=== PATIENT | female | born 1960 | race American Indian/Alaskan Native ===

== ENCOUNTER 2018-02-14 12:31 | Emergency (ER) | payer OTHER ==
[2018-02-14 12:41] VITALS: PULSE 76; RESP 18; TEMP 98.7; O2SAT 99
--- NOTE | 2018-02-14 13:16 | C.PDOC ---
History Of Present Illness 57 year old female with PMHx of chronic pain management presents to the ED requesting detox from heroin and cocaine. Patient states her dosage of Methadone was decreased from 75mg to 30mg 5 days ago because "beer" was found in her urine at the clinic. Patient reports snorting cocaine and taking heroin on Friday. Her last dosage of Methadone was 5 days ago and she has not had any pain medications since then. Patient also complains of generalized body aches and chest congestion. She denies any SI/HI, SOB, headache. Time Seen by Provider: 02/14/18 12:55 Chief Complaint (Nursing): Substance Abuse History Per: Patient History/Exam Limitations: no limitations Onset/Duration Of Symptoms: Days Current Symptoms Are (Timing): Still Present Suicide/Self Injury Attempted (Context): None Modifying Factor(s): Cocaine, Other (Heroin) Associated Symptoms: denies: Suicidal Thoughts, Suicidal Plan Past Medical History Reviewed: Historical Data, Nursing Documentation, Vital Signs Vital Signs: Last Vital Signs Temp 98.7 F 02/14/18 12:38 Pulse 76 02/14/18 12:38 Resp 18 02/14/18 12:38 BP 119/68 02/14/18 13:26 Pulse Ox 99 02/14/18 14:42 - Medical History PMH: HTN, Hypercholesterolemia Surgical History: Cholecystectomy Family History: States: No Known Family Hx - Social History Hx Alcohol Use: Yes Hx Substance Use: Yes (COCAINE, METHADONE) Review Of Systems Constitutional: Positive for: Other (Generalized myalgias) Respiratory: Positive for: Cough, Other (Chest congestion ). Negative for: Shortness of Breath Psych: Negative for: Suicidal ideation Physical Exam - Physical Exam Appears: Non-toxic, No Acute Distress, Other Skin: Normal Color, Warm, Dry Head: Atraumatic, Normacephalic Eye(s): bilateral: Normal Inspection Nose: Normal Oral Mucosa: Moist Neck: Supple Cardiovascular: Rhythm Regular, No Murmur Respiratory: Rhonchi (Worse on the left ), Other (Wet transmitted breath sounds) Gastrointestinal/Abdominal: Soft, No Tenderness, No Guarding, No Rebound Neurological/Psych: Oriented x3, Normal Speech Disoriented To: Person ED Course And Treatment - Laboratory Results Result Diagrams: 02/14/18 13:33 02/14/18 13:33 Lab Interpretation: No Acute Changes O2 Sat by Pulse Oximetry: 99 (RA) Pulse Ox Interpretation: Normal - Radiology CXR: Interpreted by Me CXR Interpretation: Yes: No Acute Disease Reevaluation Time: 14:45 Reassessment Condition: Unchanged (Case discussed with crisis. No detox beds available at this time.) Medical Decision Making Medical Decision Making: Plan - Labs - UA - CXR Disposition Counseled Patient/Family Regarding: Studies Performed, Diagnosis, Need For Followup - Disposition Referrals: [facility] [Outside] Disposition: HOME/ ROUTINE Disposition Time: 14:48 Condition: STABLE Instructions: Opioid Use Disorder Forms: Deanslist (Korean) - Clinical Impression Clinical Impression: Opiate abuse, continuous - Scribe Statement The provider has reviewed the documentation as recorded by the Scribe Shannan Killian All medical record entries made by the Scribe were at my direction and personally dictated by me. I have reviewed the chart and agree that the record accurately reflects my personal performance of the history, physical exam, medical decision making, and the department course for this patient. I have also personally directed, reviewed, and agree with the discharge instructions and disposition.
[2018-02-14 13:27] VITALS: BP 119/68
[2018-02-14 13:36] LABS: BASO # 0.1 K/uL (0.0-0.2); BASO % 0.8 % (0.0-2.0); EOS # 0.1 K/uL (0.0-0.7); EOS % 1.4 % (0.0-4.0); HEMOGLOBIN 13.7 g/dL (11.0-16.0); LYMPH # 2.8 K/uL (1.0-4.3); LYMPH % 39.9 % (20.0-40.0); MEAN CELL VOLUME 80.8 fL (81.0-99.0); MEAN CORPUSCULAR HEMOGLOBIN 27.3 pg (27.0-31.0); MEAN CORPUSCULAR HGB CONC 33.8 g/dL (33.0-37.0); MEAN PLATELET VOLUME 8.3 fL (7.2-11.7); MONO # 0.6 K/uL (0.0-0.8); NEUT # 3.5 K/uL (1.8-7.0); NEUT % 49.9 % (50.0-75.0); NRBC % 0.1 % (0.0-2.0); RBC 5.04 Mil/uL (3.80-5.20); WHITE BLOOD COUNT 7.1 K/uL (4.8-10.8)
[2018-02-14 13:49] LABS: ALB/GLOB RATIO 1.3 (1.0-2.1); CALCIUM 9.6 mg/dl (8.6-10.4); GFR AFRICAN-AMERICAN > 60; GFR NON-AFRICAN AMERICAN > 60
[2018-02-14 13:57] LABS: ALT/SGPT 26 U/L (9-52); AST/SGOT 22 U/L (14-36); BLOOD UREA NITROGEN 11 mg/dL (7-17)
[2018-02-14 14:08] LABS: SQUAMOUS EPITHIAL 2 /hpf (0-5); URINE BILIRUBIN NEGATIVE (NEGATIVE); URINE BLOOD NEGATIVE (NEGATIVE); URINE CLARITY Clear (Clear); URINE COLOR Yellow (YELLOW); URINE GLUCOSE (UA) NORMAL (Normal); URINE LEUKOCYTE ESTERASE TRACE Leu/uL (Negative); URINE PROTEIN NEGATIVE (NEGATIVE)
[2018-02-14 14:20] LABS: BARBITURATES, UR NEGATIVE (NEGATIVE); BENZODIAZEPINES, UR NEGATIVE (NEGATIVE); OPIATES, UR NEGATIVE (NEGATIVE); PHENCYCLIDINE, UR NEGATIVE (NEGATIVE)
--- NOTE | 2018-02-14 18:19 | RAD ---
Date of service: 02/14/2018 HISTORY: chest congestion COMPARISON: Frontal chest radiograph 03/19/2012. TECHNIQUE: Chest PA and lateral FINDINGS: LUNGS: No active pulmonary disease. PLEURA: No significant pleural effusion identified. No pneumothorax apparent. CARDIOVASCULAR: Borderline cardiomegaly. No pulmonary vascular derangement appreciated. OSSEOUS STRUCTURES: No significant abnormalities. VISUALIZED UPPER ABDOMEN: Surgical clips are noted in the right upper quadrant abdomen. OTHER FINDINGS: None. IMPRESSION: No interval acute cardiopulmonary disease appreciated.
== END 2018-02-14 15:06 | disposition home or self-care (01) ==
LOC: C.ER 12:31
DX: F11.10 Opioid abuse, uncomplicated (principal)
CPT/HCPCS: 71046; 80053; 81001; 85025; 99283; G0480

== ENCOUNTER 2018-02-20 14:06 | Inpatient (IN) | payer MEDICARE, MEDICAID ==
[2018-02-20 15:03] LABS: BASO # 0.3 K/uL (0.0-0.2); BASO % 2.1 % (0.0-2.0); EOS # 0.1 K/uL (0.0-0.7); EOS % 0.4 % (0.0-4.0); HEMOGLOBIN 15.8 g/dL (11.0-16.0); LYMPH # 6.1 K/uL (1.0-4.3); LYMPH % 46.6 % (20.0-40.0); MEAN CORPUSCULAR HEMOGLOBIN 26.8 pg (27.0-31.0); MEAN CORPUSCULAR HGB CONC 33.5 g/dL (33.0-37.0); MEAN PLATELET VOLUME 8.4 fL (7.2-11.7); MONO # 0.9 K/uL (0.0-0.8); MONO % 7.1 % (0.0-10.0); NEUT # 5.7 K/uL (1.8-7.0); NEUT % 43.8 % (50.0-75.0); NRBC % 0.1 % (0.0-2.0); RBC 5.89 Mil/uL (3.80-5.20); RED CELL DISTRIBUTION WIDTH 15.2 % (11.5-14.5)
[2018-02-20 15:28] LABS: ALB/GLOB RATIO 1.1 (1.0-2.1); ALBUMIN 4.5 g/dL (3.5-5.0); ALT/SGPT 46 U/L (9-52); AST/SGOT 34 U/L (14-36); BLOOD UREA NITROGEN 10 mg/dL (7-17); CALCIUM 9.9 mg/dl (8.6-10.4); GFR AFRICAN-AMERICAN > 60; GFR NON-AFRICAN AMERICAN > 60
[2018-02-20 17:11] LABS: BARBITURATES, UR NEGATIVE (NEGATIVE); BENZODIAZEPINES, UR NEGATIVE (NEGATIVE); PHENCYCLIDINE, UR NEGATIVE (NEGATIVE)
[2018-02-20 17:14] LABS: SQUAMOUS EPITHIAL < 1 /hpf (0-5); URINE BACTERIA RARE (<OCC); URINE BILIRUBIN NEGATIVE (NEGATIVE); URINE BLOOD NEGATIVE (NEGATIVE); URINE CLARITY Clear (Clear); URINE COLOR Yellow (YELLOW); URINE GLUCOSE (UA) NORMAL (Normal); URINE LEUKOCYTE ESTERASE NEG Leu/uL (Negative); URINE PROTEIN NEGATIVE (NEGATIVE)
[2018-02-20 17:15] LABS: OPIATES, UR POSITIVE (NEGATIVE)
--- NOTE | 2018-02-20 18:03 | C.PDOC ---
History Of Present Illness Pt is here requesting detox from Heroin. Time Seen by Provider: 02/20/18 14:17 Chief Complaint (Nursing): Substance Abuse History Per: Patient, Family Onset/Duration Of Symptoms: Days Current Symptoms Are (Timing): Still Present Suicide/Self Injury Attempted (Context): None Modifying Factor(s): Narcotics Severity: Moderate Associated Symptoms: denies: Suicidal Thoughts, Suicidal Plan Additional History Per: Prior Records Past Medical History Reviewed: Historical Data, Nursing Documentation, Vital Signs Vital Signs: Last Vital Signs Temp 98.7 F 02/20/18 16:27 Pulse 115 H 02/20/18 16:27 Resp 16 02/20/18 16:27 BP 112/79 02/20/18 16:27 Pulse Ox 100 02/20/18 18:05 - Medical History PMH: CVA, Diabetes, HTN, Hypercholesterolemia, Seizures, Sleep Apnea Surgical History: Cholecystectomy Family History: States: Unknown Family Hx - Social History Hx Tobacco Use: Yes Hx Alcohol Use: Yes Hx Substance Use: Yes (Snorts Heroin. COCAINE, METHADONE) Review Of Systems Except As Marked, All Systems Reviewed And Found Negative. Constitutional: Positive for: Malaise. Negative for: Fever Cardiovascular: Negative for: Chest Pain Respiratory: Negative for: Shortness of Breath Gastrointestinal: Positive for: Diarrhea Genitourinary: Negative for: Dysuria Musculoskeletal: Negative for: Neck Pain Skin: Negative for: Rash Neurological: Negative for: Weakness, Seizures Psych: Positive for: Withdrawal. Negative for: Psychosis Physical Exam - Physical Exam Appears: Other (Pt is uncomfortable, exhibiting signs of opioid withdrawal) Skin: Normal Color, Warm, Dry Head: Atraumatic, Normacephalic Eye(s): bilateral: PERRL, EOMI Oral Mucosa: Moist Neck: Normal ROM, Supple Cardiovascular: Rhythm Regular Respiratory: No Accessory Muscle Use Gastrointestinal/Abdominal: Soft, No Guarding, No Rebound Back: No CVA Tenderness Extremity: Normal ROM Neurological/Psych: Oriented x3, Normal Speech, Normal Cognition, Normal Motor ED Course And Treatment - Laboratory Results Result Diagrams: 02/20/18 14:59 02/20/18 14:59 Lab Interpretation: No Acute Changes O2 Sat by Pulse Oximetry: 100 Pulse Ox Interpretation: Normal Progress Note: Pt is medically stable for detox admission. Reassessment Condition: Improved Progress - Interventions Interventions:: Observation - Medications Administered Oral: Antiemetic, Antihypertensive, Other (Imodium) - Data Reviewed Data Reviewed: Lab, Old records - Patient Status Patient status: Partially improved Disposition Discussed With : Alicja Reece Comment: She accepted pt on detox unit. She will call respiratory therapy for nightly C-PAP due to SARIAH. Doctor Will See Patient In The: Hospital Counseled Patient/Family Regarding: Studies Performed, Diagnosis, Smoking Cessation - Disposition Disposition: HOSPITALIZED Disposition Time: 18:30 Condition: STABLE - Clinical Impression Clinical Impression: Drug abuse, Opioid dependence Decision To Admit - Pt Status Changed To: Hospital Disposition Of: Inpatient - Admit Certification Admit to Inpatient:: After my assessment, the patient will require hospitalization for at least two midnights. This is because of the severity of symptoms shown, intensity of services needed, and/or the medical risk in this patient being treated as an outpatient. - InPatient: Physician Admission Certification: I certify that this patient requires 2 or more midnights of care for the following reason:: Detox. - . Bed Request Type: Detox Admitting Physician: Dai Verdin Patient Diagnosis: Drug abuse, Opioid dependence
--- NOTE | 2018-02-20 18:57 | PCM.BM ---
<Ivan Rivero - Last Filed: 02/20/18 18:55> Treatment Plan Problems - Problems identified on initial assessmt potential for opiate withdrawal Date Initiated: 02/20/18 Time Initiated: 18:56 Status: Active Treatment assets and liabiliti Patient Liabilities: substance abuse, medical problems - Milieu Protocol Maintain good personal hygiene: daily Encourage regular showers, daily Remind patient to perform daily oral care, daily Assist patient to perform ADL's Conduct patient checks and document Observation sheet: Q15 minutes Maintain personal safety: every shift Educate patient to report safety concerns to staff, every shift Monitor environment for contraband/sharps Medication safety: Monitor for expected outcome, potential side effects: every shift, Assess barriers to learning: every shift, Assess readiness for medication education: every shift <Josie Oliveira - Last Filed: 02/23/18 15:33> Family Contact Family involvement: Famliy/SO not involved - Goals for Treatment Patient goals for treatment: Complete detox and discuss aftercare options with counseling staff. Aftercare TBD. Discharge/Continuing Care - Education Needs Education Needs: Patient Medication, Patient Diagnosis/Disease Process, Patient Coping Skills, Patient Anger Management skills, Patient Placement options, Patient Community resources - Discharge Discharge Criteria: No longer exhibiting s/s of withdrawal, Reduction of target symptoms Discharge to:: Other - Additional Comments 02/23/18 15:34 PT. UNDECIDED AT THIS TIME AND STILL FORMULATING A PLAN WITH THE COUNSELING STAFF. - Treatment Team Participation Patient/Family/SO Statement: 02/23/18 15:34 "I GOTTA THINK ABOUT MY OPTIONS..." Discussed with Family/SO: No Was Patient/Family/SO present at Treatment Team Meeting: Yes <Dai Verdin - Last Filed: 02/24/18 15:11> - Diagnosis (1) Opioid dependence Status: Acute Interventions: 02/24/18 15:11 * Assess 7x/week regarding severity of withdrawal * Educate regarding risks, benefits, side effects and alternatives of medications * Use Motivational Interviewing for abstinence * Use CBT for relapse prevention * Medication management for withdrawal symptoms * Encourage medication assisted treatment *
[2018-02-21] MEDS ORDERED: Aluminum Hydroxide/Magnesium Hydroxide Susp (30 mL) PO PRN (01:53)
--- NOTE | 2018-02-21 10:16 | PCM.PSYCH ---
Initial Psychiatric Evaluation - Initial Psychiatric Evaluation Type of Admission: Voluntary Legal Status: Capacity Chief Complaint (in patient's own words): "I need to stay clean" History of Present Illness and Precipitating Events: Patient is a 57 year old female self referred for detox admission. She needs to stay clean and sober. Patient reports abusing heroin, cocaine, methadone and alcohol for many years. Pt stated she was attending substance abuse program. However, due to relapse she was kicked out. Patient is drinking 3 24 OZ cans of beers and 3 "airline shots" daily for the past 2 months. Patient last drank yesterday. Patient has been abusing alcohol for 30 years. CAGE questionnaire is positive. Patient is smoking or sniffing $60 worth of cocaine daily. Her last use of cocaine was 2 days ago. Patient has been abusing cocaine on and off for 20 years. Patient is using 9 bags of heroin intra-nasally a day for the past 2 months. Patient last used heroin yesterday. Patient has been abusing heroin for 26 years. Patient also reports abusing an unspecified amount of illicit Methadone. Patient reports she last used Methadone on February 09. Pt has opioid withdrawal symptoms. Patient reported sweating, suffering anxiety, GI distress , hot and cold flashes and diarrhea. Patient has a history of narcan reversals and the most recent one was a week ago. 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 Patient was in fact terminated last week due to dirty urines. Patient reports that she had at one time 3 years clean on MMTP. Patient has multiple co-occurring medical issues. Patient suffered a stroke in 2011 and presents with mild cognitive delay. Patient uses a cane to ambulate. Patient has a history of depression and outpatient mental health services. Patient denies SI and HI, intent or plan. Current Medications: Active Medications Generic Name Dose Route Start Last Admin Trade Name Freq PRN Reason Stop Dose Admin Al Hydrox/Mg Hydrox/Simethicone 30 ml 02/21/18 01:53 Maalox 30 Ml PO Q8H PRN Indigestion / Heartburn Clonidine HCl 0.1 mg 02/20/18 20:42 Catapres PO Q8 PRN COWS Score More or Equal to 5 Dicyclomine HCl 10 mg 02/21/18 01:49 02/21/18 02:00 Bentyl PO 10 mg Q6H PRN Administration Muscle spasm Hydroxyzine HCl 25 mg 02/21/18 01:51 02/21/18 02:00 Atarax PO 25 mg Q6H PRN Administration Agitation Ibuprofen 600 mg 02/20/18 18:45 Motrin Tab PO TID PRN Pain, moderate (4-7) Loperamide HCl 2 mg 02/20/18 21:42 Imodium PO Q8 PRN Diarrhea Ondansetron HCl 4 mg 02/20/18 22:42 02/21/18 02:00 Zofran Tab PO 4 mg Q8 PRN Administration Nausea/Vomiting Trazodone HCl 50 mg 02/20/18 18:45 02/21/18 02:00 Desyrel PO 50 mg HS PRN Administration Insomnia Past Psychiatric History - Past Psychiatric History Previous Treatment History: Inpatient History of Abuse: denied History of ETOH/Drug Use: please see HPI History of Family Illness: denied Pertinent Medical Hx (Current Medical&Sleep Prob, Allergies): Allergies Allergy/AdvReac Type Severity Reaction Status Date / Time No Known Allergies Allergy Verified 02/20/18 14:09 Unobtainable 02/14/18 DM, HTN Review of Systems - Review of Systems All systems: reviewed and no additional remarkable complaints except (see HPI) Mental Status Examination - Personal Presentation Personal Presentation: Looks stated age, Dressed appropriate to season - Affect Affect: Constricted - Motor Activity Motor Activity: Psychomotor Agitation - Reliability in Providing Information Reliability in Providing Information: Fair - Speech Speech: Organized, Coherent - Mood Mood: Depressed, Anxious - Formal Thought Process Formal Thought Process: No Impairment - Hallucinations/Delusions Hallucinations: Other (denied) - Obsessions/Compulsions Obsessions: None Compulsions: None - Cognitive Functions Orientation: Person, Place, Situation, Time Sensorium: Alert Attention/Concentration: Attentive Abstract Thinking: [place] Estimate of Intelligence: Average Judgement: Intact, as evidence by: Good judgement, Intact, as evidence by: Insight regarding need for hospitalization Memory: Recent intact, as evidence by: Ability to recall events of the day - Risk Risk: Withdrawal - Strength & Assets Inventory Strength & Assets Inventory: Intelligence, Family support, Cooperative - Limitations Limitations: Other (chronic mental illness) DSM 5 DX - DSM 5 DSM 5 Diagnosis: Opioid dependence, severe Opioid withdrawal Alcohol use disorder, severe, dependence Alcohol withdrawal unspecified depressive disorder - Recommended/Plan of Treatment Treatment Recommendations and Plan of Treatment: Librium detox Methadone detox As needed meds and vitamins Attend groups and activities MD for abstinence and CBT for relapse prevention Support and psychoeducation Consider and encourage MAT Refer to after care 33 min Prognosis: good with compliance with meds Discharge Plan and Discharge Criteria: refer to after care plan
--- NOTE | 2018-02-22 10:45 | PCM.PYCHPN ---
Psychiatric Progress Note - Psychiatric Progress Note Patient seen today, length of contact: 16 minutes Patient Chief Complaint: "I have withdrawal symptoms and I was not able to sleep last night" Problems Identified/Issues Discussed: The pt is seen, chart reviewed, case discussed with staff. Pt stated that she was not able to sleep last night. She is still experiencing withdrawal symptoms. The pt is compliant with medications and reports no side-effects. Symptoms are improving but needs more time to stabilize. After care discussed, support and psychoeducation given. DSM 5 Symptoms Update: Opioid use disorder, severe, dependence Opioid withdrawal symptoms. Medication Change: Yes (daily methadone taper) Medical Record Reviewed: Yes Mental Status Examination - Cognitive Function Orientation: Person, Place, Situation, Time Memory: Intact Attention: WNL Concentration: Poor Association: WNL Fund of Knowledge: WNL Decription of patient's judgement and insights: improving/improving Addtional comments: Pt is walking with cane - Mood Mood: Depressed, Anxious - Affect Affect: Constricted - Speech Speech: Appropriate - Formal Thought Process Formal Thought Process: No Impairment Psychotic Thoughts and Behaviors: denied - Suicidal Ideation Suicidal Ideation: No Plan: denied - Homicidal Ideation Homicidal Ideation: No Plan: denied Goal/Treatment Plan - Goal/Treatment Plan Need for Continued Stay: Discharge may exacerbated symptoms, Severe functional impairment Progress Toward Problem(s) and Goals/Treatment Plan: Librium detox Methadone detox As needed meds and vitamins Attend groups and activities [place] for abstinence and CBT for relapse prevention Support and psychoeducation Consider and encourage MAT Estimated Date of D/C: 02/25/18 - Smoking Cessation Smoking Cessation Initiated: Yes
[2018-02-22] MEDS: Multiple Vitamins Tab PO SCH (10:50)
[2018-02-22 17:44] VITALS: RESP 18
[2018-02-23] MEDS: Multiple Vitamins Tab PO SCH (11:10)
--- NOTE | 2018-02-23 14:30 | PCM.PYCHPN ---
Psychiatric Progress Note - Psychiatric Progress Note Patient seen today, length of contact: 16 minutes Patient Chief Complaint: "Not good" Problems Identified/Issues Discussed: The pt is seen, chart reviewed, case discussed with staff. Support and psychoeducation given, CBT and DC used briefly No new symptoms reported, improving slowly and needs more time No SEs from medications, risks discussed. After care discussed Medication Change: Yes (detox changes daily) Medical Record Reviewed: Yes Mental Status Examination - Cognitive Function Orientation: Person, Place, Situation, Time Memory: Intact Attention: WNL Concentration: Poor Association: WNL Fund of Knowledge: WNL - Mood Mood: Depressed, Anxious - Affect Affect: Constricted - Speech Speech: Appropriate - Formal Thought Process Formal Thought Process: No Impairment - Suicidal Ideation Suicidal Ideation: No - Homicidal Ideation Homicidal Ideation: No Goal/Treatment Plan - Goal/Treatment Plan Need for Continued Stay: Discharge may exacerbated symptoms, Severe functional impairment Progress Toward Problem(s) and Goals/Treatment Plan: Continue taper Gabapentin for augmentation if needed As needed medications All risks, benefits and alternatives of the meds discussed, and the pt agreed and understood. Attend groups and activities Supportive therapy and psychoeducation [place] for abstinence CBT for relapse prevention Encourage MAT Refer to rehab or IOP, and self-help groups Smoking cessation with DC Nicotine patch if needed Estimated Date of D/C: 02/26/18
[2018-02-24] MEDS: Multiple Vitamins Tab PO SCH (09:10)
--- NOTE | 2018-02-24 15:13 | PCM.PYCHPN ---
Psychiatric Progress Note - Psychiatric Progress Note Patient seen today, length of contact: 15 min Patient Chief Complaint: "OK" Problems Identified/Issues Discussed: The pt is seen, chart reviewed, case discussed with staff. The pt is compliant with medications and reports no side-effects. Symptoms are improving but needs more time to stabilize. Pt attends groups and activities. Support given, psycho-education provided. After care discussed. Medication Change: Yes (detox changes daily) Medical Record Reviewed: Yes Mental Status Examination - Cognitive Function Orientation: Person, Place, Situation, Time Memory: Intact Attention: WNL Concentration: Poor Association: WNL Fund of Knowledge: WNL - Mood Mood: Depressed, Anxious - Affect Affect: Constricted - Speech Speech: Appropriate - Formal Thought Process Formal Thought Process: No Impairment - Suicidal Ideation Suicidal Ideation: No - Homicidal Ideation Homicidal Ideation: No Goal/Treatment Plan - Goal/Treatment Plan Need for Continued Stay: Discharge may exacerbated symptoms, Severe functional impairment Progress Toward Problem(s) and Goals/Treatment Plan: Continue taper Gabapentin for augmentation if needed As needed medications All risks, benefits and alternatives of the meds discussed, and the pt agreed and understood. Attend groups and activities Supportive therapy and psychoeducation [place] for abstinence CBT for relapse prevention Encourage MAT Refer to rehab or IOP, and self-help groups Smoking cessation with [place] Nicotine patch if needed Estimated Date of D/C: 02/26/18
--- NOTE | 2018-02-25 08:49 | PCM.PYCHDC ---
Mental Status Examination - Mental Status Examination Orientation: Person Discharge Summary - Discharge Note Consultations:: List each consultation separately and include: 1. Reason for request. 2. Findings. 3. Follow-up Summary of Hospital Course include:: 1. Description of specific treatment plan utilized for patients during their course of treatmen. 2. Summarize the time- course for resolution of acute symptoms and/or regressed behaviors. 3. Describe issues identified and worked on during hospitalization. 4. Describe medication utilized. 5. Describe medical problems identified and treated. 6. Reassessment of suicide risk Summary of Hospital Course: She was denied by some rehabs but is on the wait list for [facility]. - Final Diagnosis (DSM 5) Condition upon Discharge: STABLE Disposition: HOME/ ROUTINE Follow-up Treatment Plan: Continue taper Gabapentin for augmentation if needed As needed medications All risks, benefits and alternatives of the meds discussed, and the pt agreed and understood. Attend groups and activities Supportive therapy and psychoeducation [place] for abstinence CBT for relapse prevention Encourage MAT Refer to rehab or IOP, and self-help groups Smoking cessation with [place] Nicotine patch if needed Prescriptions/Medication Reconciliation: QUEtiapine [Seroquel] 200 mg PO HS #30 tab traZODone [Desyrel] 100 mg PO HS PRN #30 tab PRN Reason: Insomnia
[2018-02-25] MEDS: Multiple Vitamins Tab PO SCH (09:10)
[2018-02-25 10:18] VITALS: BP 127/85; PULSE 102; TEMP 99; O2SAT 98
== END 2018-02-25 11:15 | disposition home or self-care (01) | DRG 895 ==
LOC: C.ER 14:06 → C.9E 18:31 → C.7D 18:43
PROVIDERS: ADMIT Psychiatry & Neurology Psychiatry; ATTEND Psychiatry & Neurology Psychiatry
PROC: HZ2ZZZZ Detoxification Services for Substance Abuse Treatment (ICD-10-PCS; principal; 2018-02-20)
PROC: HZ52ZZZ Individual Psychotherapy for Substance Abuse Treatment, Cognitive-Behavioral (ICD-10-PCS; 2018-02-20)
PROC: HZ59ZZZ Individual Psychotherapy for Substance Abuse Treatment, Supportive (ICD-10-PCS; 2018-02-20)
PROC: HZ56ZZZ Individual Psychotherapy for Substance Abuse Treatment, Psychoeducation (ICD-10-PCS; 2018-02-20)
PROC: HZ42ZZZ Group Counseling for Substance Abuse Treatment, Cognitive-Behavioral (ICD-10-PCS; 2018-02-20)
PROC: HZ46ZZZ Group Counseling for Substance Abuse Treatment, Psychoeducation (ICD-10-PCS; 2018-02-20)
PROC: GZHZZZZ Group Psychotherapy (ICD-10-PCS; 2018-02-20)
PROC: GZ58ZZZ Individual Psychotherapy, Cognitive-Behavioral (ICD-10-PCS; 2018-02-20)
PROC: GZ56ZZZ Individual Psychotherapy, Supportive (ICD-10-PCS; 2018-02-20)
DX: F11.23 Opioid dependence with withdrawal (principal); F10.230 Alcohol dependence with withdrawal, uncomplicated; Y90.0 Blood alcohol level of less than 20 mg/100 ml; E11.9 Type 2 diabetes mellitus without complications; E78.00 Pure hypercholesterolemia, unspecified; F32.9 Major depressive disorder, single episode, unspecified; G47.30 Sleep apnea, unspecified; I10 Essential (primary) hypertension; G47.00 Insomnia, unspecified; R56.9 Unspecified convulsions; Z86.73 Personal history of transient ischemic attack (TIA), and cerebral infarction without residual deficits; Z87.891 Personal history of nicotine dependence

== ENCOUNTER 2018-08-14 11:32 | Outpatient (CLI) | payer MEDICARE, OTHER | END 2018-08-14 11:33 | disposition home or self-care (01) | LOC: C.MRIC 11:33 | DX: D35.2 Benign neoplasm of pituitary gland (principal) ==